=== PATIENT | female | born 1990 | race Caucasian/White ===

== ENCOUNTER 2017-10-22 11:48 | Emergency (ER) | payer OTHER ==
[~2017-10-22] VITALS: Ht 167.6 cm; Wt 61.2 kg
== END 2017-10-22 12:30 | disposition short-term general hospital (02) ==
LOC: ED 11:48
DX: R51 Headache (principal); M25.532 Pain in left wrist; V49.59XA Passenger injured in collision with other motor vehicles in traffic accident, initial encounter; Y93.89 Activity, other specified; Y92.413 State road as the place of occurrence of the external cause; Y99.9 Unspecified external cause status